=== PATIENT | female | born 1935 | race Caucasian/White ===

== ENCOUNTER 2016-05-07 07:58 | Emergency (ER) | payer OTHER ==
[~2016-05-07] VITALS: Ht 167.6 cm; Wt 80.7 kg
--- NOTE | 2016-05-07 08:18 | ED AMS/SEIZURE/WEAK/DIZZY ---
History of Present Illness General Chief Complaint: Dizziness Stated Complaint: DIZZY Source: patient, family (DAUGHTER), old records Exam Limitations: no limitations Vital Signs & Intake/Output Vital Signs & Intake/Output Vital Signs Date Time Temp Pulse Resp B/P Pulse O2 O2 Flow FiO2 Ox Delivery Rate 05/07 1037 96.2 59 18 156/62 95 Room Air 05/07 0833 97 Room Air Room Air 05/07 0824 180/92 05/07 0812 97.0 73 16 96 Room Air Allergies Coded Allergies: Penicillins (DIARRHEA 05/07/16) Reconcile Medications Aspirin (Aspirin*) 81 MG TAB.CHEW 1 TAB PO DAILY HEART HEALTH (Reported) Hydrochlorothiazide 12.5 MG CAPSULE 1 CAP PO DAILY HTN (Reported) Levothyroxine Sodium (Synthroid) 100 MCG TABLET 1 TAB PO DAILY HYPOTHYROID ( Reported) Lisinopril 10 MG TABLET 1 TAB PO DAILY HTN (Reported) Meclizine HCl 25 MG TABLET 1 TAB PO TIDPRN PRN DIZZINESS Metoprolol Succinate 200 MG TAB.ER.24H 1 TAB PO DAILY HTN (Reported) Ondansetron (Zofran Odt) 4 MG TAB.RAPDIS 1 TAB SL TID PRN NAUSEA Triage Note: PT STATES WHEN SHE WOKE SHE FELT VERY DIZZY WITH POSITION CHANGES. PT ALSO STATES SHE HAD NAUSEA WITH THE DIZZINESS AND DIAPHORESIS. PT TAKEN TO ROOM. EKG COMPLETED LEEROY Lao PA-C AT BEDSIDE FOR EVAL. Triage Nurses Notes Reviewed? yes Onset: Abrupt Duration: hour(s): (3), constant Timing: recent history Injury Environment: home Severity: moderate Severity Numbers: 7 Modifying Factors: Improves With: rest. Worsens With: movement. Associated Symptoms: diaphoresis, n/v HPI: [id number] female with history of hypertension hypothyroid presents emergency room with her daughter for evaluation complaining of room spinning dizziness sudden in onset worse with movement and position changes associated with nausea vomiting and diaphoresis since waking this morning at 5:00 she's been unable to take her blood pressure medicine secondary to her symptoms. She denies any associated chest pain shortness of breath palpitations or lightheadedness. The patient was recently on a course of Cefuroxime for an upper respiratory infection which she states has been improving. There is no abdominal pain. There are no other associated symptoms or modifying factors. there has been no change in the patients mental status per family, no recent fall or head trauma. She was unable to take her blood pressure medications this morning secondary to her symptoms (LEEROY GAINES) Past History Travel History Traveled to [place] past 21 day No Medical History Any Pertinent Medical History? see below for history Cardiovascular: hypertension Endocrine: hypothyroidism Surgical History Surgical History: none Psychosocial History What is your primary language Irish Tobacco Use: Never used ETOH Use: occasional use Illicit Drug Use: denies illicit drug use Family History Hx Contributory? No (LEEROY GAINES) Review of Systems Review of Systems Constitutional: Reports: see HPI. All Other Systems: Reviewed and Negative Comments Review of systems: See HPI, All other systems negative. Constitutional, no chills no fever, no malaise HEENT: No visual changes no sore throat no congestion, Cardiovascular: No chest pain , no palpitation , no orthopnea no ankle swelling Skin, no jaundice no rashes, no change in skin Respiratory: No dyspnea no cough no sputum GI: No nausea no vomiting, no diarrhea, no bloating/constipation : No dysuria No hematuria, no frequency Muscle skeletal: No joint pain, no joint swelling, no back pain, no neck pain Neurologic: No numbness no confusion, no headache Psych: No stress . Heme/endocrine: No bruising no bleeding Immunology: No lymphadenopathy (LEEROY GAINES) Physical Exam Physical Exam General Appearance: well developed/nourished, alert, awake Neurologic/Psych: no motor/sensory deficits, awake, alert, oriented x 3, normal gait, normal mood/affect, computer systems administrator II-XII nml as tested Comments: Well-developed well-nourished person in no acute distress Head/Face: Atraumatic, no maxillary/frontal sinus tenderness, no facial swelling Eyes: PERRL, EOMI, no conjunctival injection. No nystagmus Ear:External auditory canal and Tympanic membranes clear, no erythema, no FB. Nose: atraumatic.Normal inspection Throat: Moist mucous membranes.Pharynx normal. Neck: Supple, no lymphadenopathy, no bruit, FROM Back: Nontender, no CVA tenderness. Full range of motion Cardiovascular: Regular rate and rhythms no murmurs rubs or gallops, normal JVP Respiratory: Chest nontender.There were no bony deformities, no asymmetry. No respiratory distress. Patient speaking in full complete sentences. Breath sounds clear to auscultation bilaterally: NO W/R/R Abdomen: Soft, nontender nondistended, no appreciable organomegaly. Normal bowel sounds. No rebound/guarding, No appreciable enlargement of the abdominal aorta, No ascites. Extremity: No edema, full range of motion of extremities, normal and equal pulses bilaterally, 5 out of 5 strength noted to bilateral upper and lower extremities Neuro: Alert oriented x3, motor sensory normal, cranial nerves II through XII grossly intact. There were no obvious focal neurologic abnormalities. neg rhomberg Skin: No appreciable rash on exposed skin, skin is warm and dry. Psych: Mood and affect is normal, memory and judgment is normal. Core Measures ACS in differential dx? Yes CVA/TIA Diagnosis: No Severe Sepsis Present: No Septic Shock Present: No (AGAPITO MORAES,LEEROY) Progress Differential Diagnosis: arrythmia, anemia, benign positional vertigo, CVA/stroke , dehydration, electrolyte imbalance, GI bleed, hypoglycemia, intracranial Hem., intracranial mass/tumor, labrynthitis, presyncope, seizure disorder, subarachnoid Hem., UTI/pyelo, vertebrobasilar insuff Plan of Care: Orders Procedure Date/time Status URINALYSIS 05/07 936 Complete THYROID STIMULATING HORMONE 05/07 816 Complete TROPONIN LEVEL 05/07 816 Complete MAGNESIUM 05/07 816 Complete COMPREHENSIVE METABOLIC PANEL 05/07 816 Complete CBC WITHOUT DIFFERENTIAL 05/07 816 Complete EKG 05/07 799 Active Laboratory Tests 05/07/16 0940: Urine Color STRAW, Urine Clarity CLEAR, Urine pH 7.0, Ur Specific [place] 1.020, Urine Protein NEG, Urine Ketones NEG, Urine Nitrite NEG, Urine Bilirubin NEG, Urine Urobilinogen 0.2, Ur Leukocyte Esterase NEG, Ur Microscopic EXAM NOT REQUIRED, Urine Hemoglobin NEG, Urine Glucose NEG 05/07/16 0830: Anion Gap 9, Estimated GFR > 60, BUN/Creatinine Ratio 28.3 H, Glucose 135 H, Calcium 9.7, Magnesium 1.8, Total Bilirubin 0.6, AST 22, ALT 37, Alkaline Phosphatase 71, Troponin I < 0.01, Total Protein 6.8, Albumin 4.1, Globulin 2.7, Albumin/Globulin Ratio 1.5, TSH 1.150, CBC w Diff NO MAN DIFF REQ, RBC 4.97, MCV 85.5, MCH 28.5, RDW 14.1, MPV 8.0, Gran % 62.2, Lymphocytes % 27.3, Monocytes % 6.1, Eosinophils % 3.5, Basophils % 0.9, Absolute Granulocytes 3.1, Absolute Lymphocytes 1.4, Absolute Monocytes 0.3, Absolute Eosinophils 0.2, Absolute Basophils 0, PUBS MCHC 33.4 Labs ordered old records reviewed patient making Zofran 4 IV, Benadryl 25 IV 05/07/2016 9:08:00 AM patient reports that she is feeling improved, discussed with her and her family family thought her lab results of the, x-ray findings pending CAT scan patient denies dizziness at this time or nausea CASE D/W DR MONTGOMERY 05/07/2016 9:46:03 AM patient ambulatory to the bathroom by self with steady gait feeling improved discussed with her and her daughter her CAT scan results reviewed patient was able to take her blood pressure medication without nausea or vomiting 05/07/2016 10:45:57 AM I discussed with the patient and her family again all her lab results patient states that her symptoms have completely resolved, she is ambulatory around the ER here with steady gait she feels comfortable with discharge. Discussed with her close follow-up with her primary care physician tomorrow, return anytime sooner for symptoms redevelop her and answered all her questions she feels comfortable with plan (AGAPITO MORAES,LEEROY) Diagnostic Imaging: Viewed by Me: Radiology Read, CT Scan. Discussed w/RAD: Radiology Read, CT Scan. Radiology Impression: PATIENT: JARED REYES PRESENT AGE: 81 PATIENT ACCOUNT NO: [id number] : 33 LOCATION: [facility] ORDERING PHYSICIAN: LEEROY MORAES SERVICE DATE: 05/07/16 EXAM TYPE: RAD - XRY-CHEST XRAY, PA AND LATERAL EXAMINATION: XR CHEST CLINICAL INFORMATION: Cough and dizziness COMPARISON: None TECHNIQUE: 2 views of the chest were obtained. FINDINGS: Lungs are clear and trachea is midline in position. Cardiac silhouette is borderline enlarged. The pulmonary vascular pattern is normal. There is no focal pulmonary consolidation, edema or pleural effusion. No acute skeletal pathology. IMPRESSION: No acute cardiopulmonary disease. DICTATED BY: BRENDA CERRATO MD DATE/TIME DICTATED:05/07/16856 PEDIATRIC NEUROPSYCHOLOGIST:CEZAR DATE/TIME TRANSCRIBED:05/07/16856 CONFIDENTIAL, DO NOT COPY WITHOUT APPROPRIATE AUTHORIZATION. <Electronically signed in Other Vendor System> SIGNED BY: BRENDA CERRATO MD 05/07/16 0902, PATIENT: JARED REYES PRESENT AGE: 81 PATIENT ACCOUNT NO: [id number] : LOCATION: [facility] ORDERING PHYSICIAN: LEEROY MORAES SERVICE DATE: EXAM TYPE: CAT - CT HEAD WO IV CONTRAST EXAMINATION: CT HEAD WITHOUT CONTRAST CLINICAL INFORMATION: Dizziness, nausea and vomiting. COMPARISON: None TECHNIQUE: Contiguous axial imaging was performed from the skull base to vertex without intravenous administration of contrast. DLP: 600.71 mGy-cm FINDINGS: There is atherosclerotic calcification of the carotid siphons. The brain parenchyma has normal attenuation with well-preserved shook-white matter differentiation. No evidence of acute major vascular territory infarction, intracranial hemorrhage, extra axial fluid collection, focal mass effect or midline shift. The ventricles, sulci and basilar cisterns are unremarkable. The calvarium is intact and the visualized paranasal sinuses, mastoid air cells and middle ear cavities are clear. IMPRESSION: No acute intracranial pathology. DICTATED BY: BRENDA CERRATO MD DATE/TIME DICTATED:05/07/16926 PEDIATRIC NEUROPSYCHOLOGIST:CEZAR DATE/TIME TRANSCRIBED:05/07/16926 CONFIDENTIAL, DO NOT COPY WITHOUT APPROPRIATE AUTHORIZATION. <Electronically signed in Other Vendor System> SIGNED BY: BRENDA CERRATO MD 05/07/1633 Initial ED EKG: normal p-waves, normal QRS complex, normal sinus rhythm (60), RBBB Rhythm Strip: normal sinus rhythm (LEEROY GAINES) Departure Departure Time of Disposition: 1045 Disposition: HOME OR SELF CARE Condition: Stable Clinical Impression Primary Impression: Vertigo Referrals: LYDIA ESTRADAASHLEY (PCP/Family) Additional Instructions: Meclizine as needed for dizziness, Zofran if needed for nausea. Sauk diet clear liquids. These prescriptions were sent to your pharmacy. Return anytime sooner with any concerns Departure Forms: Customer Survey General Discharge Information Prescriptions: Current Visit Scripts Meclizine HCl 1 TAB PO TIDPRN PRN DIZZINESS #15 TAB Ondansetron (Zofran Odt) 1 TAB SL TID PRN NAUSEA #10 TAB (LEEROY GAINES) PA/ARCHIVIST ECONOMIC HISTORY Co-Sign Statement Statement: ED Attending supervision documentation- x I saw and evaluated the patient. I have also reviewed all the pertinent lab results and diagnostic results. I agree with the findings and the plan of care as documented in the PA's/ARCHIVIST ECONOMIC HISTORY's documentation. [] I have reviewed the ED Record and agree with the PA's/ARCHIVIST ECONOMIC HISTORY's documentation. [] Additions or exceptions (if any) to the PAs/ARCHIVIST ECONOMIC HISTORY's note and plan are summarized below: [] (ULISES ESTRADA,FISH)
[2016-05-07] MEDS ORDERED: HYDROCHLOROTH12.5 M3 PO (08:20)
[2016-05-07] MEDS ORDERED: METOPROLOL SUC200 M2 PO (08:20)
[2016-05-07] MEDS ORDERED: LISINOPRIL10 M1 PO (08:21)
[2016-05-07] MEDS ORDERED: SYNTHROID100 MCG PO (08:21)
[2016-05-07] MEDS ORDERED: ASPIRIN81 M4 PO (08:21)
[2016-05-07 08:38] LABS: ABSOLUTE BASOPHIL COUNT 0 /CUMM (0.0-0.2); ABSOLUTE EOSINOPHIL COUNT 0.2 /CUMM (0.0-0.7); ABSOLUTE GRANULOCYTE CT 3.1 /CUMM (1.4-6.5); ABSOLUTE LYMPH COUNT 1.4 /CUMM (1.2-3.4); ABSOLUTE MONOCYTE COUNT 0.3 /CUMM (0.10-0.60); BASOPHIL % 0.9 % (0.0-2.0); EOSINOPHIL % 3.5 % (0-5); GRANULOCYTE % 62.2 % (42.2-75.2); HEMATOCRIT 42.4 % (37-47); MEAN CORPUSCULAR HGB 28.5 PG (27.0-31.0); MEAN CORPUSCULAR HGB CONC 33.4 G/DL (33.0-37.0); MEAN CORPUSCULAR VOLUME 85.5 FL (81.0-99.0); PLATELET COUNT 250 /CUMM (130-400); RBC DISTRIBUTION WIDTH 14.1 % (11.5-14.5); RED BLOOD CELL CT 4.97 /CUMM (4.20-5.40)
--- NOTE | 2016-05-07 09:02 | RADIOLOGY REPORT ---
EXAMINATION: XR CHEST CLINICAL INFORMATION: Cough and dizziness COMPARISON: None TECHNIQUE: 2 views of the chest were obtained. FINDINGS: Lungs are clear and trachea is midline in position. Cardiac silhouette is borderline enlarged. The pulmonary vascular pattern is normal. There is no focal pulmonary consolidation, edema or pleural effusion. No acute skeletal pathology. IMPRESSION: No acute cardiopulmonary disease.
--- NOTE | 2016-05-07 09:33 | CT SCAN REPORT ---
EXAMINATION: CT HEAD WITHOUT CONTRAST CLINICAL INFORMATION: Dizziness, nausea and vomiting. COMPARISON: None TECHNIQUE: Contiguous axial imaging was performed from the skull base to vertex without intravenous administration of contrast. DLP: 600.71 mGy-cm FINDINGS: There is atherosclerotic calcification of the carotid siphons. The brain parenchyma has normal attenuation with well-preserved shook-white matter differentiation. No evidence of acute major vascular territory infarction, intracranial hemorrhage, extra axial fluid collection, focal mass effect or midline shift. The ventricles, sulci and basilar cisterns are unremarkable. The calvarium is intact and the visualized paranasal sinuses, mastoid air cells and middle ear cavities are clear. IMPRESSION: No acute intracranial pathology.
[2016-05-07 10:37] VITALS: BP 156/62
[2016-05-07] MEDS ORDERED: MECLIZINE HCL25 MG PO (10:48)
[2016-05-07] MEDS ORDERED: ZOFRAN ODT4 M1 SL (10:48)
== END 2016-05-07 11:01 ==
LOC: ERH 07:58
PROVIDERS: Physician Assistant Medical
DX: R42 Dizziness and giddiness (principal); I10 Essential (primary) hypertension
CPT/HCPCS: 81003; 93005; 93010; 96361; 96374; 96375; J1200; J2405